=== PATIENT | male | born 1960 | race African-American/Black ===

== ENCOUNTER 2022-07-11 13:24 | Emergency (ER) | payer OTHER, SELFPAY ==
--- OUTSIDE RECORDS SUMMARY | 2022-07-11 13:27 | XMS REPORT | Continuity of Care Document ---
:1960 Author Organization [facility] t Address [address] [place] [address] Care Team Providers Name Role Phone Pcp, Patient Does Not Have A Primary Care Physician [id number] CHANDRAKANT KUMAR Attending Clinician Unavailable Chandrakant Kumar MD Attending Clinician RAJNI FLANAGAN Attending Clinician Unavailable Problems This patient has no known problems. Allergies, Adverse Reactions, Alerts Allergy Allergy Status Severity Reaction(s) Onset Inactive Treating Comm ents Source Name Type Date Date Clinician NO KNOWN Drug Active Univers ALLERGIE Class [facility] Social History Social Habit Start Date Stop Date Quantity Comments Source Sex Assigned At [birth year] [facility] 00:00:00 00:00:00 Medical Branch Smoking Status Start Date Stop Date Source Tobacco smoking consumption [facility] Branch Medications Ordered Filled Start Stop Current Ordering Indication Dosage Frequency Signature Comments Components Source Medication Medication Date Date Medication? Clinician (SIG) Name Name ondansetron 2021-0 Yes [id number] 4mg Take 1 Univers 4 mg 9-13 tablet by ity of disintegrat 00:00: mouth [place] ing tablet 00 every 8 Medica l (eight) Branch hours as needed for Nausea and Vomiting (N/V). Vital Signs Vital Name Observation Time Observation Value Comments Source Systolic blood 2022-02-28 17:50:00 168 mm[Hg] Univer sity of pressure [facility] Diastolic blood 2022-02-28 17:50:00 92 mm[Hg] [facility] Heart rate 2022-02-28 17:50:00 55 /min [facility] Respiratory rate 2022-02-28 17:50:00 19 /min [facility] Oxygen saturation in 2022-02-28 17:50:00 100 /min [facility] Arterial blood by [facility] Pulse oximetry Amity Body temperature 2022-02-28 15:54:44 36.5 Prudence [facility] Body height 2022-02-28 15:01:00 170.2 cm [facility] Body weight 2022-02-28 15:01:00 70.308 kg [facility] BMI 2022-02-28 15:01:00 24.28 kg/m2 [facility] Procedures Procedure Date / Time Performed Performing Clinician Sour e URINALYSIS 2022-02-28 17:01:00 Chandrakant Kumar [facility] COVID-19 (ID NOW RAPID 2022-02-28 17:01:00 Chandrakant Kumar [facility] TESTING) Medical Branch LIPASE 2022-02-28 15:47:00 Chandrakant Kumar [facility] TROPONIN I 2022-02-28 15:47:00 Chandrakant Kumar [facility] HEPATIC FUNCTION PANEL 2022-02-28 15:47:00 Chandrakant Kumar [facility] ([id number]) [facility] (ALB,T.PRO,BILI T,BU/BC,ALT,AST,ALK PHOS) BASIC METABOLIC PANEL 2022-02-28 15:47:00 Chandrakant Kumar [facility] (NA, K, CL, CO2, Medical Branch GLUCOSE, BUN, CREATININE, CA) CBC WITH DIFF 2022-02-28 15:47:00 Chandrakant Kumar [facility] RAPID INFLUENZA A/B 2022-02-28 15:47:00 Chandrakant Kumar [facility] NOTICE OF PRIVACY 2022-02-28 14:58:50 [facility] Un[facility]igned, [facility] CONSENT/REFUSAL FOR 2022-02-28 14:57:48 Doctor Unassigned, [facility] AND Name Medical Branch TREATMENT Encounters Start End Encounter Admission Attending Care Care Encounter Source Date/Time Date/Time Type Type Clinicians Facility Department ID 2022-04-21 2022-04-21 Outpatient SFA [id number] [id number] Don 14:16:01 14:16:01 [id number] F Spiro 2022-04-03 2022-04-03 Outpatient SFA [id number] [id number] Don 15:56:16 15:56:16 F Spiro 2022-03-29 2022-03-29 Outpatient SFA [facility] Don 09:04:34 09:04:34 [facility] 2022-03-27 2022-03-27 Outpatient SFA SFA Don 14:52:21 14:52:21 [facility] 2022-02-28 2022-02-28 [id number] 10:04:00 13:08:00 CHANDRAKANT evangelista [facility] 2022-02-28 2022-02-28 [id number] Univers 10:04:00 13:08:00 Chandrakant MINOR [id number] [facility] [id number] [facility] [id number] [address] 2019-10-28 2019-10-[address] FLANA[address] [facility] [address] [facility] 13:58:00 15:33:00 2018-10-23 2018-10-[address] [facility] [address] [facility] 07:30:00 07:30:00 Results Test Description Test Time Test Comments Results Result Comments Source MAURICE REFLEX AUTOIMMUNE AB PROFILE 2022-04-06 06:03:44 Test Item Value Reference Range Interpretation Comme nts ANTI-NUCLEAR ANTIBODIES NEGATIVE NEGATIVE Met hodology is Indirect (test code = 3506) Immunoflu orescent Assay (IFA) with a titering system using [id number] cells ( Hep2 cells transfected wit h SS-A/Ro). MAURICE PATTERN (REPORTED SEE BELOW TITER) (test code = 50232) HOMOGENEOUS (test code = NEGATIVE TITER NEGATIVE 98953) SPECKLED (test code = NEGATIVE TITER NEGATIVE 650579) DENSE FINE SPECKLED (test NEGATIVE TITER NEGATIVE code = 05090) CENTROMERE (test code = NEGATIVE TITER NEGATIVE 264435) COARSE SPECKLED (test code NEGATIVE TITER NEGATIVE = 703971) DISCRETE NUCLEAR DOTS (test NEGATIVE TITER NEGATIVE code = 680445) NUCLEOLAR (test code = NEGATIVE TITER NEGATIVE 861154) NUCLEAR MEMBRANE (test code NEGATIVE TITER NEGATIVE = 168925) CYTO. RETICULAR (KYLE) NEGATIVE NEGATIVE (test code = 445086) COMMENTS (test code = NONE 597223) METHOD (test code = 98810) (NOTE) NOTE: EFFECTIVE 01/23/2022, METHOD IS TRANS ITIONED TO THE [employer] IFA PLATFORM. THE M ETHOD INCLUDES A SCREENTHRESHOLD OF 1:80, DIGITIZED AND C OMPUTER ALGORITHM-ANUPAMA TEDINTERPRETATION OF TITERS AND D IGITAL PATTERNS, AND HEp-2 CELLL INE SUBSTRATE. ADDITIONAL UNUS UAL PATTERNS WILL BE GIVEN ASCOMM ENTS. FOR MORE INFORMATION, SE E [email or web address] [email or web address] [id number] 09:37:28 Test Item Value Reference Range Interpretation Comments SEDIMENTATION RATE (test code = 8 MM/HOUR 0-15 1017) CCP [id number] 06:05:38 Test Item Value Reference Range Interpretation Comments CCP IgG (test <0.5 U/ML <3.0 INTERPRET KAROLINA code = 15780) INFORMATION * INTERPRETATION RESULT NEGATIVE <3.0 U /ML POSITIVE >=3.0 U/ML UNLE SS OTHERWISE INDICATED, ALL TESTING PERFORMED [facility] [employer] [address] [place] [address] LABOR ATORY DIRECTOR: LIOR NAZARIO M.D. CLIA NUMBER [id number] CAP ACCREDITATION N O. [id number] RHEUMATOID FACTOR, [id number] 04:51:56 Test Item Value Reference Range Interpretation Comments RHEUMATOID FACTOR, QUANT (test code <10 IU/ML <14 = 3502) C-REACTIVE [id number] 04:51:56 Test Item Value Reference Range Interpretation Comments C-REACTIVE PROTEIN (test code = <0.3 MG/DL <0.5 3513) LIPID [id number] 08:22:52 Test Item Value Reference Range Interpretation Comments CHOLESTEROL (test 164 MG/DL <200 code = 2210) TRIGLYCERIDES (test 103 MG/DL <150 code = 2232) HDL CHOLESTEROL (test 75 MG/DL >39 code = 2220) CALC LDL CHOL (test 70 MG/DL <100 NOTE: C ALCULATED LDL code = 2237) IS BASED ON MIKEL-CALIXTO METHOD WHICHINCLUDES ADJUSTABLE TRIGLYCERIDE:VL DL CHOLESTEROL RAT IO.THIS FACTOR VARIES B Y MEASURED TRIGLY CERIDE AND NON-HDLCHOL ESTEROL CONCENTRATIONS WITH INCREASED CALCU LATED LDL SEENIN HIGH ER TRIGLYCERIDE OR LOWER NON-HDL SPECIME NS. FOR MOREINFORMATION , SEE CLIENT ANNOUNCE MENT AT [email or web address] LDL/HDL 0.93 RATIO <3.55 (test code = 2238) COMPREHENSIVE METABOLIC [id number] 08:22:52 Test Item Value Reference Range Interpretation Comments GLUCOSE (test code = 88 MG/DL 70-99 2216) BUN (test code = 16 MG/DL 8-23 2207) CREATININE (test 1.24 MG/DL 0.80-1.40 code = 2214) eGFR (2020 CKD-EPI) 66 ML/MIN/1.73 >60 (test code = 88442) CALC BUN/CREAT (test 13 RATIO 6-28 code = 2235) SODIUM (test code = 144 MEQ/L 555-015 3435) POTASSIUM (test code 4.4 MEQ/L 3.5-5.4 = 2227) CHLORIDE (test code 104 MEQ/L 95-107 = 2215) CARBON DIOXIDE (test 27 MEQ/L 19-31 code = 2206) CALCIUM (test code = 10.3 MG/DL 8.5-10.5 2208) PROTEIN, TOTAL (test 7.7 G/DL 6.1-8.3 code = 2229) ALBUMIN (test code = 4.7 G/DL 3.5-5.2 2200) CALC GLOBULIN (test 3.0 G/DL 1.9-3.7 code = 2240) CALC A/G RATIO (test 1.6 RATIO 1.0-2.6 code = 2234) BILIRUBIN, TOTAL 0.8 MG/DL See_Comment [Automated message] (test code = 2207) The syste m which generated this result transmit nas reference range : <=1.2. The refe rence range was not u sed to interpret th is result as normal/abnormal . ALKALINE PHOSPHATASE 81 U/L 40-123 (test code = 4) AST (test code = 29 U/L 9-50 2217) ALT (test code = 17 U/L 5-50 2218) PSA, [id number] 06:52:55 Test Item Value Reference Range Interpretation Comments PSA, TOTAL 1.97 NG/ML See_Comment NOTE: Methodol ogy is Kendall (test code = Alexia Electroch emiluminescence 2606) Immunoassay tra ceable to WHO reference stand bushra 96/760. [Automated mess age] The system which generated this result transmitted ref erence range: <=4.00. The ref erence range was not used to int erpret this result as garcia l/abnormal. TSH, THIRD [id number] 06:52:55 Test Item Value Reference Range Interpretation Comments TSH, THIRD GENERATION (test code 0.791 UIU/ML 0.400-4.100 = 2821) HEPATITIS C [id number] 04:01:03 Test Item Value Reference Range Interpretation Comments HEPATITIS C ANTIBODY (test code NON-REACTIVE NON-REACTIVE = 4675) HIV 1/2 4TH GEN, RFLX [id number] 04:01:03 Test Item Value Reference Range Interpretation Comments HIV 1/2 4TH GEN, RFLX CONF (test NON-REACTIVE NON-REACTIVE code = 3514) HEMOGLOBIN [id number] 02:26:15 Test Item Value Reference Range Interpretation Comments HEMOGLOBIN A1c (test 5.7 % 4.2-5.6 H UNLESS OTHERWISE code = 35092) INDICATED, ALL TESTING PERFORMED [facility] [address] [facility] [place] [address] [facility] DIRECT[facility]: LIOR NAZARIO M.D. CLIA NUMBER [id number] CAP ACCREDITATION N O. [id number] CBC W/AUTO DIFF WITH [id number] 02:02:15 Test Item Value Reference Range Interpretation Comments WBC (test code = 6.7 K/UL 3.5-11.0 1001) RBC (test code = 4.23 M/UL 4.50-6.10 L 1002) HEMOGLOBIN (test code 12.7 G/DL 13.5-17.0 L = 1003) HEMATOCRIT (test code 38.1 % 40.0-51.0 L = 1004) MCV (test code = 90.1 fL 80.0-99.0 1005) MCH (test code = 30.0 PG 25.0-33.0 1006) MCHC (test code = 33.3 G/DL 31.0-36.0 1007) RDW (test code = 13.6 % 11.5-15.0 1038) NEUTROPHILS (test 57.6 % code = 1008) LYMPHOCYTES (test 31.9 % code = 1010) MONOCYTES (test code 7.9 % = 1011) EOSINOPHILS (test 1.9 % code = 1012) BASOPHILS (test code 0.4 % = 1013) IMMATURE GRANULOCYTES 0.3 % (test code = 1036) NUCLEATED RBCS (test 0.0 /100 WBC'S See_Comment [Aut omated code = 1065) message] The sy stem which generated this result transmitted reference range : 0.0. The refere nce range was not u sed to interpret th is result as normal/abnormal . PLATELET COUNT (test 330 K/UL 130-400 code = 1015) ABSOLUTE NEUTROPHILS 3.88 K/UL 1.50-7.50 (test code = 1066) ABSOLUTE LYMPHOCYTES 2.15 K/UL 1.00-4.00 (test code = 1067) ABSOLUTE MONOCYTES 0.53 K/UL 0.20-1.00 (test code = 1068) ABSOLUTE EOSINOPHILS 0.13 K/UL 0.00-0.50 (test code = 1040) ABSOLUTE BASOPHILS 0.03 K/UL 0.00-0.20 (test code = 1069) ABS IMMATURE 0.02 K/UL 0.00-0.10 GRANULOCYTES (test code = 1020) ABS NUCLEATED RBCS 0.00 K/UL 0.00-0.11 (test code = 70531) TROPONIN [id number] 16:30:32 Test Item Value Reference Interpretation Comments Range TROPONIN I (test 0.006 ng/mL See_Comment [Automated code = 1253123351) message] The system which generated this result transmitted reference range : <=0.034. The reference range was not used to interpret this result as normal/abnormal . GABBY (test code = Reference (Normal) GABBY) Range (defined by the 99th percentile reference limit): <= 0.034 ng/mL Note: Cardiac troponin begins to rise 3-4 hours after the onset of ischemia. Repeat in 4-6 hours if the sample was drawn within 3-4 hours of the onset of the symptom and found normal. Diagnosis of myocardial injury is made with acute changes in cTn concentrations with at least one serial sample above the 99th percentile upper reference limit (URL), taken together with the patient's clinical presentation. Biotin has been reported to cause a negative bias, interpret results relative to patient's use of biotin. Lab Interpretation Normal (test code = 17640-8) [facility] METABOLIC PANEL (NA, K, CL, CO2, GLUCOSE, BUN, CREATININE, CA)2022-02-28 16:18:50 Test Item Value Reference Range Interpretation Comments NA (test code = 135 mmol/L 135-145 3443196742) K (test code = 4.1 mmol/L 3.5-5 5472030876) CL (test code = 103 mmol/L 98-108 5561011385) CO2 TOTAL (test code 26 mmol/L 23-31 = 5887347343) AGAP (test code = 2-16 1385199536) BUN (test code = 14 mg/dL 7-23 7111547494) GLUCOSE (test code = 98 mg/dL 70-110 8948338704) CREATININE (test code 1.05 mg/dL 0.6-1.25 = 2003875495) CALCIUM (test code = 9.6 mg/dL 8.6-10.6 1257477182) eGFR (test code = mL/min/1.73m2 0268519600) GABBY (test code = GABBY) Association of Glomerular Filtration Rate (GFR) and Staging of Kidney Disease* + + +- +| GFR (mL/min/1.73 m2) ?| With Kidney Damage ?| ?Without Kidney Damage+ ------+ ----+ ------+| ?>90 ?| ?Stage one ?| ? Normal ?+ -+ + -+| ?60-89 ?| ?Stage two ?| ? Decreased GFR ? + + +- +| ?30-59 ?| ?Stage three ?| ? Stage three ? + + +- +| ?15-29 ?| ?Stage four ? | ? Stage four ?+ -+ + -+| ?<15 (or dialysis) ? ?| ?Stage five ? | ? Stage five ?+ -+ + -+ *Each stage assumes the associated GFR level has been in effect for at least three months. ?Stages 1 to 5, with or without kidney disease, indicate chronic kidney disease. Notes: Determination of stages one and two (with eGFR >59mL/min/1.73 m2) requires estimation of kidney damage for at least three months as defined by structural or functional abnormalities of the kidney, manifested by either:Pathological abnormalities or Markers of kidney damage (including abnormalities in the composition of the blood or urine or abnormalities in imaging tests). [facility] 16[facility]18[facility]50 Test Item Value Reference Range Interpretation Comments LIPASE (test code = 7885697237) 62 U/L 0-220 Lab Interpretation (test code = Normal 12697-9) [facility] ([address] (ALB,T.PRO,BILI T,BU/BC,ALT,AST,ALK PHOS)2022-02-28 16:18:50 Test Item Value Reference Range Interpretation Comments TOTAL BILI (test code = 4240734961) 1.1 mg/dL 0.1-1.1 BILI UNCON (test code = 2059492430) 1.0 mg/dL 0.1-1.1 BILI CONJ (test code = 0439922347) 0.0 mg/dL 0-0.3 T PROTEIN (test code = 1332514897) 7.3 g/dL 6.3-8.2 ALBUMIN (test code = 8975875968) 4.5 g/dL 3.5-5 ALK PHOS (test code = 1923514125) 68 U/L 34-122 ALTv (test code = 1742-6) 18 U/L 5-50 AST(SGOT) (test code = 9299193291) 27 U/L 13-40 Lab Interpretation (test code = Normal 27917-7) [facility] WITH [id number] 15:57:46 Test Item Value Reference Range Interpretation Comments WBC (test code = See_Comment [Automated 6690-2) message] The sy stem which generated this result transmitted reference range : 4.20 - 10.70 10*3/?L. The reference range was not used to interpret this result as normal/abnormal . RBC (test code = See_Comment L [Automated 789-8) message] The sy stem which generated this result transmitted reference range : 4.26 - 5.52 10*6/?L. The reference range was not used to interpret this result as normal/abnormal . HGB (test code = 12.5 g/dL 12.2-16.4 718-7) HCT (test code = 36.9 % 38.4-49.3 L 4544-3) MCV (test code = 89.3 fL 81.7-95.6 787-2) MCH (test code = 30.3 pg 26.1-32.7 785-6) MCHC (test code = 33.9 g/dL 31.2-35 786-4) RDW-SD (test code = 45.5 fL 38.5-51.6 33868-2) RDW-CV (test code = 13.9 % 12.1-15.4 788-0) PLT (test code = See_Comment [Automated 777-3) message] The sy stem which generated this result transmitted reference range : 150 - 328 10*3/ ?L. The reference r batool was not used to interpret this result as normal/abnormal . MPV (test code = 9.2 fL 9.8-13 L 68245-6) NRBC/100 WBC (test See_Comment [Automat ed code = 0250046825) message] The system which generated this result transmitted reference range : 0.0 - 10.0 /100 WBCs. The refer ence range was not u sed to interpret th is result as normal/abnormal . NRBC x10^3 (test code See_Comment [Auto mated = 5061356451) message] The s ystem which generated this result transmitted reference range : 10*3/?L. The reference range was not used to interpret this result as normal/abnormal . GRAN MAT (NEUT) % 71.4 % (test code = 770-8) IMM GRAN % (test code 0.20 % = 1446579774) LYMPH % (test code = 22.2 % 736-9) MONO % (test code = 5.6 % 5905-5) EOS % (test code = 0.3 % 713-8) BASO % (test code = 0.3 % 706-2) GRAN MAT x10^3(ANC) 4.61 10*3/uL 1.99-6.95 (test code = 8699533142) IMM GRAN x10^3 (test 0-0.06 code = 9386235981) LYMPH x10^3 (test code 1.43 10*3/uL 1.09-3.23 = 731-0) MONO x10^3 (test code 0.36 10*3/uL 0.36-1.02 = 742-7) EOS x10^3 (test code = 0.06-0.53 L 711-2) BASO x10^3 (test code 0.01-0.09 = 704-7) Lab Interpretation Abnormal (test code = 93736-9) [facility]"
[2022-07-11 13:49] LABS: Absolute Lymphocytes (CBC) 1.9 K/uL (0.7-4.9); Hematocrit 35.2 % (39.6-49.0); MCV 90.8 fL (80-100); MPV 7.3 fL (7.6-11.3); RBC Red Blood Cell Count 3.87 M/uL (4.33-5.43)
[2022-07-11 14:08] LABS: Albumin 3.7 g/dL (3.4-5.0); Bilirubin Direct 0.2 mg/dL (0-0.2); Bilirubin Total 0.7 mg/dL (0.2-1.0); Potassium 3.9 mmol/L (3.5-5.1); Protein, Total 7.7 g/dL (6.4-8.2); Troponin High Sensitivity 6.9 pg/mL (<58.9)
--- NOTE | 2022-07-11 14:48 | RAD REPORT ---
EXAM DESCRIPTION: Alexa Single View07/11/2022 2:43 pm CLINICAL HISTORY: Chest pain COMPARISON: none FINDINGS: The lungs appear clear of acute infiltrate. The heart is normal size IMPRESSION: No acute abnormalities displayed
--- NOTE | 2022-07-11 15:25 | EDPHYS ---
Physician Documentation [facility] Name: Kenji Ahn Jr Age: 62 yrs Sex: Male : 1960 Arrival Date: 07/11/2022 Time: 13:27 Bed [id number] Private MD: ED Physician Ra Calhoun HPI: 07/11 13:31 This 62 yrs old Black Male presents to ER via Wheelchair with complaints of Chest Pain. ms3 13:31 62-year-old male with past medical history of asthma, diabetes, hypertensive disorder, ms3 tobacco abuse presents for chest pain that began last night. Patient states while at work today the pain became worse. Patient rates his pain 8/10 describes it as being sharp, and located on the left side of his chest. Patient denies shortness of breath, nausea, vomiting, diarrhea.. Historical: - Allergies: 13:30 No Known Allergies; ss - Home Meds: 13:30 None [Active]; ss - PMHx: 13:30 Asthma; diabetes mellitus; Hypertensive disorder; ss - PSHx: 13:30 hand; hernia; knee; Tonsillectomy; ss - Immunization history:: Client reports having NOT received the Covid vaccine. - Social history:: Smoking status: Patient reports the use of cigarette tobacco products, smokes one pack cigarettes per day. ROS: 13:31 Constitutional: Negative for fever, and chills. Neck: Negative for injury, pain, and ms3 swelling, Respiratory: Negative for shortness of breath, cough, wheezing, and pleuritic chest pain, Abdomen/GI: Negative for abdominal pain, nausea, vomiting, diarrhea, and constipation, Skin: Negative for injury, rash, and discoloration. 13:31 All other systems are negative. Exam: 14:07 Constitutional: This is a well developed, well nourished patient who is awake, alert, ms3 and in no acute distress. Head/Face: Normocephalic, atraumatic. ENT: Nares patent. No nasal discharge, no septal abnormalities noted. Tympanic membranes are normal and external auditory canals are clear. Oropharynx with no redness, swelling, or masses, exudates, or evidence of obstruction, uvula midline. Mucous membranes moist. Neck: Trachea midline, no cervical lymphadenopathy. Supple, full range of motion without nuchal rigidity, or vertebral point tenderness. No Meningismus. Chest/axilla: Normal chest wall appearance and motion. Nontender with no deformity. Cardiovascular: Regular rate and rhythm with a normal S1 and S2. No gallops, murmurs, or rubs. Normal PMI, no JVD. No pulse deficits. Respiratory: Lungs have equal breath sounds bilaterally, clear to auscultation and percussion. No rales, rhonchi or wheezes noted. No increased work of breathing, no retractions or nasal flaring. Abdomen/GI: Soft, non-tender, with normal bowel sounds. No distension or tympany. No guarding or rebound. No evidence of tenderness throughout. Skin: Warm, dry with normal turgor. Normal color with no rashes, no lesions, and no evidence of cellulitis. MS/ Extremity: Pulses equal, no cyanosis. Neurovascular intact. Full, normal range of motion. 14:07 ECG was reviewed by the Attending Physician. Vital Signs: 13:27 BP 157 / 95; Pulse 71; Resp 18; Temp 98.4(TE); Pulse Ox 100% on R/A; Weight 68.04 kg; ss Height 5 ft. 8 in. (172.72 cm); Pain 8/10; 13:27 Body Mass Index 22.81 (68.04 kg, 172.72 cm) ss MDM: 13:30 Patient medically screened. ms3 14:07 Differential diagnosis: abnormal EKG, acute myocardial infarction, coronary artery ms3 disease. 15:01 HEART Score: History: Slightly Suspicious (0), ECG: Normal (0), Age: > 45 and < 65 ms3 years (1), Risk Factors: > or = 3 Risk factors for atherosclerotic disease (2), [Hypertension] [DM] [Active Smoker] Troponin: < or = 1 x Normal Limit (0), Total Score = 3. 15:25 The patient was given aspirin in the Emergency Department. Data reviewed: vital signs, ms3 nurses notes, lab test result(s), EKG, radiologic studies, and as a result, I will discharge patient. Consideration of Admission/Observation Escalation of care including admission/observation considered. No emergent medical condition necessitating admission found at this time. Management of patient was discussed with the following: Eap Consultant: Discussed case with Dr. Tanner and he will see patient tomorrow at 9 AM.. I considered the following discharge prescriptions or medication management in the emergency department Medications were administered in the Emergency Department. See MAR. Independent interpretation of the following test(s) in the Emergency Department EKG: See my EKG interpretation above. Test considered but Not performed: CT: D-dimer negative. Care significantly affected by the following chronic conditions: Diabetes, Hypertension. Counseling: I had a detailed discussion with the patient and/or guardian regarding: the historical points, exam findings, and any diagnostic results supporting the discharge/admit diagnosis, lab results, radiology results, the need for outpatient follow up, to return to the emergency department if symptoms worsen or persist or if there are any questions or concerns that arise at home. Special discussion: I discussed with the patient/guardian in detail that at this point there is no indication for admission to the hospital. It is understood, however, that if the symptoms persist or worsen the patient needs to return immediately for re-evaluation. ED course: Discussed plan with patient for him to follow-up with Dr. Waller at 9 AM tomorrow. Patient and his daughter understand and agree with plan. All questions were answered. Return precautions discussed include worsening symptoms, shortness of breath, nausea, vomiting, or any other concerns. 07/11 13: Order name: Basic Metabolic Panel; Complete Time: 15:07/11 13:31 Order name: CBC with Diff; Complete Time: 15:07/11 13:31 Order name: D-Dimer; Complete Time: 15:07/11 13:31 Order name: LFT's; Complete Time: 15:07/11 13:31 Order name: Magnesium; Complete Time: 15:07/11 13:31 Order name: Troponin HS; Complete Time: 15:07/11 13:31 Order name: XRAY Chest (1 view); Complete Time: 15:07/11 13:31 Order name: EKG; Complete Time: 13:07/11 13:31 Order name: Cardiac monitoring 07/11 13:31 Order name: EKG - Nurse/Tech; Complete Time: 13:40 07/11 13:31 Order name: IV Saline Lock; Complete Time: 13:40 07/11 13:31 Order name: Labs collected and sent; Complete Time: 13:40 ms3 07/11 13:31 Order name: O2 Per Protocol; Complete Time: 13:40 ms3 07/11 13:31 Order name: O2 Sat Monitoring; Complete Time: 13:40 ms3 EC:07 Rate is 58 beats/min. Rhythm is regular. QRS [place] is Normal. FL interval is normal. QRS ms3 interval is normal. Clinical impression: Sinus bradycardia. Interpreted by me. Reviewed by me. Administered Medications: No medications were administered Disposition Summary: 07/11/22 15:25 Discharge Ordered Location: Home ms3 Condition: Stable ms3 Diagnosis - Chest pain, unspecified ms3 - Essential (primary) hypertension ms3 - Anemia, unspecified ms3 Followup: ms3 - With: Leif Tanner MD - When: Tomorrow - Reason: at 9 AM Discharge Instructions: - Discharge Summary Sheet ms3 - Nonspecific Chest Pain, Adult ms3 - Hypertension, Adult ms3 Forms: - Medication Reconciliation Form ms3 - Thank You Letter ms3 - Antibiotic Education ms3 - Prescription Opioid Use ms3 Signatures: Dispatcher [employer] Sandy Solis, RN RN Ra Cota DO DO ms3
--- NOTE | 2022-07-11 15:25 | ER ---
Nurse's Notes [facility] Name: Kenji Ahn Jr Age: 62 yrs Sex: Male : 1960 Arrival Date: 07/11/2022 Time: 13:27 Bed IW8 Private MD: Diagnosis: Chest pain, unspecified;Essential (primary) hypertension;Anemia, unspecified Presentation: 07/11 13:27 Chief complaint: Patient states: L sided chest pain that began last night, worse this ss morning. Coronavirus screen: Client denies travel out of the [place] in the last 14 days. Ebola Screen: Patient denies exposure to infectious person. Patient denies travel to an Ebola-affected area in the 21 days before illness onset. Initial Sepsis Screen: Does the patient meet any 2 criteria? No. Patient's initial sepsis screen is negative. Does the patient have a suspected source of infection? No. Patient's initial sepsis screen is negative. Risk Assessment: Do you want to hurt yourself or someone else? Patient reports no desire to harm self or others. Onset of symptoms was July 10, 2022. 13:27 Method Of Arrival: Wheelchair ss 13:27 Acuity: BELEN 3 ss Historical: - Allergies: 13:30 No Known Allergies; ss - Home Meds: 13:30 None [Active]; ss - PMHx: 13:30 Asthma; diabetes mellitus; Hypertensive disorder; ss - PSHx: 13:30 hand; hernia; knee; Tonsillectomy; ss - Immunization history:: Client reports having NOT received the Covid vaccine. - Social history:: Smoking status: Patient reports the use of cigarette tobacco products, smokes one pack cigarettes per day. Screenin:33 [facility] ED Fall Risk Assessment (Adult) History of falling in the last 3 months, jh5 including since admission No falls in past 3 months (0 pts). Abuse screen: Denies threats or abuse. Denies injuries from another. Nutritional screening: No deficits noted. Tuberculosis screening: No symptoms or risk factors identified. Vital Signs: 13:27 BP 157 / 95; Pulse 71; Resp 18; Temp 98.4(TE); Pulse Ox 100% on R/A; Weight 68.04 kg; ss Height 5 ft. 8 in. (172.72 cm); Pain 8/10; 13:27 Body Mass Index 22.81 (68.04 kg, 172.72 cm) ED Course: 13:27 Patient arrived in ED. am2 13:30 Ra Calhoun DO is Attending Physician. ms3 13:30 Triage completed. ss 13:30 Arm band placed on right wrist. ss 13:39 Inserted saline lock: 20 gauge in left antecubital area, using aseptic technique. Blood ss collected. Patient maintains SpO2 saturation greater than 95% on room air. 14:45 XRAY Chest (1 view) In Process Unspecified. EDMS 15:24 Leif Tanner MD is Referral Physician. ms3 15:33 Patient has correct armband on for positive identification. jh5 15:33 No provider procedures requiring assistance completed. IV discontinued, intact, jh5 bleeding controlled, No redness/swelling at site. Pressure dressing applied. Administered Medications: No medications were administered Medication: 15:33 VIS not applicable for this client. jh5 Outcome: 15:25 Discharge ordered by MD. ms3 15:33 Discharged to home ambulatory. jh5 15:33 Condition: good 15:33 Discharge instructions given to patient, Instructed on discharge instructions, follow up and referral plans. safety practices, Demonstrated understanding of instructions, follow-up care, medications. 15:34 Patient left the ED. 5 Signatures: Dispatcher [employer] EDCO Sandy Zelaya, RN RN Ceci Calvillo am2 Ra Calhoun DO DO ms3 Radha Sewell, RN RN jh5
[2022-07-11 17:00] VITALS: BP 157/95; TEMP 98.4; O2SAT 100
--- NOTE | 2022-07-13 18:12 | EKG ---
Test Date: 2022-07-11 Test Time: 13:37:13 Md Allergy Immunology: SB MEASUREMENT RESULTS: Intervals: Rate: 58 GA: 148 QRSD: 84 QT: 420 QTc: 412 [place]: P: 61 GA: 148 QRS: 75 T: 32 INTERPRETIVE STATEMENTS: Sinus bradycardia Moderate voltage criteria for LVH, may be normal variant Borderline ECG No previous ECG available for comparison Electronically Signed On 07-13-22 18:10:46 PHYSICIAN OPHTHALMOLOGIST by Leif Tanner
== END 2022-07-11 15:34 | disposition home or self-care (01) ==
LOC: ER 13:24
DX: R07.89 Other chest pain (principal); I10 Essential (primary) hypertension; D64.9 Anemia, unspecified; E11.9 Type 2 diabetes mellitus without complications; F17.210 Nicotine dependence, cigarettes, uncomplicated
CPT/HCPCS: 36415; 71045; 80048; 80076; 83735; 84484; 85025; 85379; 93005; 99284

== ENCOUNTER 2024-08-04 06:26 | Emergency (ER) | payer OTHER ==
--- OUTSIDE RECORDS SUMMARY | 2024-08-04 06:30 | XMS REPORT | Continuity of Care Document ---
Author Name Unknown Address [address] [facility] [address] [place] [address] [facility] thconnect Address 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 Name Role Phone Pcp, Patient Does Not Have A Primary Care Physic linh SARITA RUIZ Attending Clinician Unavailable JEF MCCLELLAND Attending Clinician Unavailable LEDY LY Attending Clinician Unavailable LAB90 Attending Clinician Unavailable ESHA PALUMBO Attending Clinician Unavailable CHANDRAKANT KUMAR Attending Clinician Unavailable Chandrakant Kumar MD Attending Clinician [phone] RAJNI FLANAGAN Attending Clinician Unavailable Payers Payer Name Policy Type Policy Number Effective Date Expirati on Date Source ZAHIDA CHATTERJEE [employer]: 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 [address] [id number] 2022 00:00:00 Problems Condition Name Condition Details Condition Category Status Onset Date Resolution Date Last Treatment Date Treating Clinician Comments Source Subclinica l hypothyroi dism Subclinica l hypothyroi dism Disease Active 09-28 00:00: 00 Julissa Carrillo - Externa l Left hip pain Left hip pain Disease Active 09-28 00:00: 00 Julissa Carrillo - Externa l Numbness and tingling in left hand Numbness and tingling in left hand Disease Active 09-28 00:00: 00 Julissa Seybold - Externa l 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 Disease Active 09-28 00:00: 00 Julissa Seybold - Externa l Prediabete s Prediabete s Disease Active 3-16 00:00: 00 Julissa Seybold - Externa l Well adult exam Well adult exam Disease Active 08-03 00:00: 00 Julissa Seybold - Externa l Syncope Syncope Disease Active 08-03 00:00: 00 Julissa Seybold - Externa l Other specified anemias Other specified anemias Disease Active 08-03 00:00: 00 Julissa Seybold - Externa l Mild intermitte nt asthma without complicati on Mild intermitte nt asthma without complicati on Disease Active 08-03 00:00: 00 Julissa Seybold - Externa l Seasonal allergic rhinitis due to pollen Seasonal allergic rhinitis due to pollen Disease Active 08-03 00:00: 00 Julissa Seybold - Externa l Tobacco abuse Tobacco abuse Disease Active 08-03 00:00: 00 Julissa Seybold - Externa l Allergies, Adverse Reactions, Alerts Allergy Name Allergy Type Status Severity Reaction(s) Onset Date Inactive Date Treating Clinician Comments Source NO KNOWN ALLERGIE S Drug Class Active [facility] Social History Social Habit Start Date Stop Date Quantity Comments Source History SDOH Alcohol Std Drinks Julissa Kaur ybold - External History SDOH Alcohol Binge Julissa Carrillo - External History of tobacco use Cigarette Smoker Julissa Lowry old - External Gender identity Bren flood Seybold - External Sexual orientation K elsey Seybold - External History SDOH Alcohol Frequency Julissa baez - External Alcohol intake 2022-11-28 00:00:00 2022-11-28 00:00:00 Ex-drinker (finding) Julissa Lowryold - External Alcohol Comment 2022-08-03 00:00:00 2022-08-03 00:00:00 occasionally Julissa Carrillo - External Education 2022-08-03 00:00:00 2022-08-03 00:00:00 14 Julissa Carrillo - External Cigarettes smoked current (pack per day) - Reported 2022-08-03 00:00:00 2022-08-03 00:00:00 Julissa Carrillo - External Cigarette pack-years 2022-08-03 00:00:00 2022-08-03 00:00:00 Julissa Joe External History of Social function 2022-08-03 00:00:00 2022-08-03 00:00:00 Julissa Carrillo - External Tobacco use and exposure 2022-08-03 00:00:00 2022-08-03 00:00:00 Smokeless tobacco non-user Julissa Nevarez Sex Assigned At 1960 00:00:00 1960 00:00:00 Julissa Carrillo - External Smoking Status Start Date Stop Date Source Tobacco smoking consumption unknown [facility] Smokes tobacco daily 2022-08-03 00:00:00 Julissa Joe External Medications Ordered Medication Name Filled Medication Name Start Date Stop Date Current Medication? Ordering Clinician Indication Dosage Frequency Signature (SIG) Comments Components Source Cetirizine (ZYRTEC) 10 MG oral Tablet 11-28 09:46: 07 Yes 10mg Take 1 tablet (10 mg total) by mouth daily Julissa powers Fluticasone -Umeclidin- Vilant (Trelegy Ellipta) 200-62.5-25 MCG/ACT inhalation AEROSOL POWDER, BREATH ACTIVATED 11-28 00:00: 00 Yes [id number] 1{puff} Inhale 1 puff into the lungs daily Julissa powers Albuterol (PROVENTIL) (2.5 MG/3ML) 0.083% inhalation Inhalant Solution 11-28 00:00: 00 Yes [id number] 2.5mg Q4H Take 2.5 mg by nebulizati on every 4 hours as needed for wheezing Julissa powers Montelukast (Singulair) 10 MG oral Tablet tablet 11-02 00:00: 00 Yes [id number] 10mg Take 1 tablet (10 mg total) by mouth nightly Julissa powers Cetirizine (ZYRTEC) 10 MG oral Tablet -15 08:43: 14 Yes 10mg Take 1 tablet (10 mg total) by mouth daily Julissa powers Gabapentin 100 MG oral Capsule -15 00:00: 00 Yes [id number] 100mg Q.5D Take 1 capsule (100 mg total) by mouth 2 times daily as needed Julissa powers Montelukast (Singulair) 10 MG oral Tablet tablet 15 00:00: 00 Yes [id number] 10mg Take 1 tablet (10 mg total) by mouth nightly Julissa powers Sildenafil Citrate (Viagra) 100 MG oral Tablet 09-28 00:00: 00 Yes 100mg QD Take 1 tablet (100 mg total) by mouth daily as needed Julissa powers Nicotine 21 MG/24HR transdermal PATCH 24 HR 09-28 00:00: 00 Yes 1{patch } Place 1 patch onto the skin every 24 hours Julissa powers Meloxicam 15 MG oral Tablet 09-28 00:00: 00 10-30 00:00 :00 No [id number] 15mg QD Take 1 tablet (15 mg total) by mouth daily as needed for pain Julissa powers Cetirizine (ZYRTEC) 10 MG oral Tablet 16 08:28: 59 Yes 10mg Take 10 mg by mouth daily Julissa powers Albuterol HFA 108 (90 Base) MCG/ACT IN AERS 16 00:00: 00 Yes [id number] 2{puff} Q.25D Inhale 2 puffs into the lungs every 6 hours as needed for wheezing or shortness of breath Julissa powers Fluticasone -Salmeterol (Advair Diskus) 250-50 MCG/ACT inhalation AEROSOL POWDER, BREATH ACTIVATED -16 00:00: 00 Yes [id number] 1{puff} Inhale 1 puff into the lungs 2 times daily Julissa powers Sildenafil Citrate (Viagra) 25 MG oral Tablet 08-31 00:00: 00 Yes [id number] 100mg QD Take 4 tablets (100 mg total) by mouth daily as needed for erectile dysfunctio n Julissa powers Nicotine 21 MG/24HR transdermal PATCH 24 HR 08-31 00:00: 00 Yes [id number] 1{patch } Place 1 patch onto the skin every 24 hours Julissa powers Cetirizine (ZYRTEC) 10 MG oral Tablet 08-03 08:41: 07 Yes 10mg Take 10 mg by mouth daily Julissa powers Albuterol HFA 108 (90 Base) MCG/ACT IN AERS 08-03 00:00: 00 Yes [id number] 2{puff} Q.25D Inhale 2 puffs into the lungs every 6 hours as needed for wheezing Julissa powers ondansetron 4 mg disintegrat ing tablet 02-28 00:00: 00 Yes [id number] 4mg Take 1 tablet by mouth every 8 (eight) hours as needed for Nausea and Vomiting (N/V). [facility] Vital Signs Vital Name Observation Time Observation Value Comments S ource Systolic blood pressure 2022-11-28 14:49:00 146 mm[Hg] Julissa Carias ld - External Diastolic blood pressure 2022-11-28 14:49:00 92 mm[Hg] Julissa joseph - External Heart rate 2022-11-28 14:49:00 74 /min Pavithra Carrillo - External Body temperature 2022-11-28 14:49:00 36.61 Prudence Julissa Carrillo - External Respiratory rate 2022-11-28 14:49:00 18 /min Julissa Carrillo - External Body height 2022-11-28 14:49:00 176.8 cm Bren Carrillo - External Body weight 2022-11-28 14:49:00 65.046 kg Bren Carrillo - External BMI 2022-11-28 14:49:00 20.81 kg/m2 Bren Carrillo - External Oxygen saturation in Arterial blood by Pulse oximetry 2022-11-28 14:49:00 99 /min Julissa Seybo ld - External Systolic blood pressure 2022-10-30 13:42:00 129 mm[Hg] Julissa Seybo ld - External Diastolic blood pressure 2022-10-30 13:42:00 78 mm[Hg] Julissa Seybo ld - External Heart rate 2022-10-30 13:42:00 98 /min Kelse y Seybold - External Body temperature 2022-10-30 13:42:00 36.56 Prudence Julissa Seybold - External Respiratory rate 2022-10-30 13:42:00 16 /min Julissa Seybold - External Body height 2022-10-30 13:42:00 172.7 cm Bren ey Seybold - External Body weight 2022-10-30 13:42:00 65.772 kg Bren ey Seybold - External BMI 2022-10-30 13:42:00 22.05 kg/m2 Bren ey Seybold - External Oxygen saturation in Arterial blood by Pulse oximetry 2022-10-30 13:42:00 99 /min Julissa Seybo ld - External Systolic blood pressure 2022-09-28 13:19:00 140 mm[Hg] Julissa Seybo ld - External Diastolic blood pressure 2022-09-28 13:19:00 86 mm[Hg] Julissa Seybo ld - External Heart rate 2022-09-28 13:19:00 66 /min Kelse y Seybold - External Body temperature 2022-09-28 13:19:00 36.61 Prudence Julissa Seybold - External Respiratory rate 2022-09-28 13:19:00 14 /min Julissa Seybold - External Body height 2022-09-28 13:19:00 172.7 cm Bren ey Seybold - External Body weight 2022-09-28 13:19:00 66.225 kg Bren ey Seybold - External BMI 2022-09-28 13:19:00 22.20 kg/m2 Bren ey Seybold - External Oxygen saturation in Arterial blood by Pulse oximetry 2022-09-28 13:19:00 99 /min Julissa Seybo ld - External Systolic blood pressure 2022-08-31 13:26:00 134 mm[Hg] Julissa Seybo ld - External Diastolic blood pressure 2022-08-31 13:26:00 74 mm[Hg] Julissa Seybo ld - External Heart rate 2022-08-31 13:26:00 74 /min Kelse y Seybold - External Body temperature 2022-08-31 13:26:00 37.06 Prudence Julissa Seybold - External Respiratory rate 2022-08-31 13:26:00 15 /min Julissa Seybold - External Body height 2022-08-31 13:26:00 172.7 cm Bren ey Seybold - External Body weight 2022-08-31 13:26:00 66.225 kg Bren ey Seybold - External BMI 2022-08-31 13:26:00 22.20 kg/m2 Bren ey Seybold - External Systolic blood pressure 2022-08-03 14:18:00 134 mm[Hg] Julissa Seybo ld - External Diastolic blood pressure 2022-08-03 14:18:00 79 mm[Hg] Julissa Seybo ld - External Heart rate 2022-08-03 14:18:00 66 /min Kelse y Seybold - External Body temperature 2022-08-03 14:18:00 36.61 Prudence Julissa Seybold - External Respiratory rate 2022-08-03 14:18:00 14 /min Julissa Seybold - External Body height 2022-08-03 14:18:00 172.7 cm Bren ey Seybold - External Body weight 2022-08-03 14:18:00 64.864 kg Bren ey Seybold - External BMI 2022-08-03 14:18:00 21.74 kg/m2 Bren ey Seybold - External Oxygen saturation in Arterial blood by Pulse oximetry 2022-08-03 14:18:00 100 /min Julissa Kaurybo ld - External Systolic blood pressure 2022-02-28 17:50:00 168 mm[Hg] [facility] Diastolic blood pressure 2022-02-28 17:50:00 92 mm[Hg] [facility] Heart rate 2022-02-28 17:50:00 55 /min [facility] Respiratory rate 2022-02-28 17:50:00 19 /min [facility] Oxygen saturation in Arterial blood by Pulse oximetry 2022-02-28 17:50:00 100 /min [place] o [facility] Body temperature 2022-02-28 15:54:44 36.5 Prudence [facility] Body height 2022-02-28 15:01:00 170.2 cm [facility] Body weight 2022-02-28 15:01:00 70.308 kg [facility] BMI 2022-02-28 15:01:00 24.28 kg/m2 [facility] Procedures Procedure Date / Time Performed Performing Clinicia n Source URINALYSIS 2022-02-28 17:01:00 Chandrakant Kumar [facility] COVID-19 (ID NOW RAPID TESTING) 2022-02-28 17:01:00 Chandrakant Kumar [facility] LIPASE 2022-02-28 15:47:00 Chandrakant Kumar [facility] TROPONIN I 2022-02-28 15:47:00 Chandrakant Kumar [facility] HEPATIC FUNCTION PANEL (76003) (ALB,T.PRO,BILI T,BU/BC,ALT,AST,ALK PHOS) 2022-02-28 15:47:00 Chandrakant Kumar [facility] BASIC METABOLIC PANEL (NA, K, CL, CO2, GLUCOSE, BUN, CREATININE, CA) 2022-02-28 15:47:00 Chandrakant Kumar [facility] CBC WITH DIFF 2022-02-28 15:47:00 Chandrakant Kumar [facility] RAPID INFLUENZA A/B 2022-02-28 15:47:00 Chandrakant Kumar [facility] NOTICE OF PRIVACY PRACTICES 2022-02-28 14:58:50 Doctor Unassigned, Gwynn [facility] CONSENT/REFUSAL FOR DIAGNOSIS AND TREATMENT 2022-02-28 14:57:48 Doctor Unassigned, Gwynn [facility] Encounters Start Date/Time End Date/Time Encounter Type Admission Type Attending Clinicians Care Facility Care Department Encounter ID Source 2024-07-09 09:54:18 2024-07-09 09:54:18 Outpatient SFA SFA [id number] Don Bloom 2024-04-22 15:14:02 2024-04-22 15:14:02 Outpatient SFA SFA [id number] Don Bloom 2023-10-14 00:00:00 2023-10-14 00:00:00 Outpatient PREZAS, SARITA JULISSA ARELLANO [id number] [facility] 2023-04-28 00:00:00 2023-04-28 00:00:00 Outpatient PREZAS, SARITA ARELLANO [id number] [facility] 2023-02-11 00:00:00 2023-02-11 00:00:00 Outpatient PREZAS, SARITA ARELLANO [id number] [facility] 2023-02-09 15:40:00 2023-02-09 15:40:00 Outpatient KRYSTIN, JEF JULISSA ARELLANO [id number] [facility] 2023-01-29 11:30:00 2023-01-29 11:30:00 Outpatient DAAS, LEDY ARELLANO [id number] [facility] 2023-01-17 16:15:00 2023-01-17 16:15:00 Outpatient PREZAS, SARITA ARELLANO [id number] [facility] 2023-01-16 00:00:00 2023-01-16 00:00:00 Outpatient PREZAS, SARITA ARELLANO [id number] [facility] 2022-12-14 09:45:00 2022-12-14 09:45:00 Outpatient JULISSA ARELLANO [id number] [facility] 2022-12-08 11:45:00 2022-12-08 11:45:00 Outpatient PREZAS, SARITA ARELLANO [id number] [facility] 2022-12-08 10:45:00 2022-12-08 10:45:00 Outpatient PREZAS, SAR[facility]ANO [id number] [facility]22-11-28 09:00:00 2022-11-28 09:00:00 Outpatient DAAS, VILLAFANA JULISSA ARELLANO [id number] Julissa Kaurfreddy 2022-11-28 00:00:00 2022-11-28 00:00:00 Outpatient DAAS, LEDY JULISSA ARELLANO [id number] Julissa Kaurfreddy 2022-11-27 00:00:00 2022-11-27 00:00:00 Outpatient PREZAS, SARITA JULISSA ARELLANO [id number] [facility] 2022-11-02 00:00:00 2022-11-02 00:00:00 Outpatient PREZAS, SARITA JULISSA ARELLANO [id number] Julissa Kaurfreddy 2022-10-30 09:20:00 2022-10-30 09:20:00 Outpatient LABKlarissa JULISSA ARELLANO [id number] [facility] 2022-10-30 08:45:00 2022-10-30 08:45:00 Outpatient PREZAS, SARITA ARELLANO [id number] [facility] 2022-10-27 00:00:00 2022-10-27 00:00:00 Outpatient PREZAS, SARITA JULISSA ARELLANO [id number] [facility] 2022-10-13 00:00:00 2022-10-13 00:00:00 Outpatient PREZAS, SARITA ARELLANO [id number] [facility] 2022-10-11 14:30:00 2022-10-11 14:30:00 Outpatient PALUMBOESHA [id number] [facility] 2022-10-11 00:00:00 2022-10-11 00:00:00 Outpatient PREZAS, SARITA ARELLANO [id number] [facility] 2022-09-28 08:30:00 2022-09-28 08:30:00 Outpatient PREZAS, SARITA ARELLANO [id number] [facility] 2022-08-31 08:30:00 2022-08-31 08:30:00 Outpatient PREZAS, SARITA ARELLANO [id number] [facility] 2022-08-04 00:00:00 2022-08-04 00:00:00 Outpatient SARITA RUIZ [id number] Julissa Carrillo 2022-08-03 09:00:00 2022-08-03 09:00:00 Outpatient ARMANDO90 JULISSA ARELALNO [id number] Julissa Carrillo 2022-08-03 08:15:00 2022-08-03 08:15:00 Outpatient SARITA RUIZ [id number] Julissa Carrillo 2022-04-21 14:16:01 2022-04-21 14:16:01 Outpatient SFA SFA [id number] Don Bloom 2022-04-03 15:56:16 2022-04-03 15:56:16 Outpatient SFA SFA [id number] Don Bloom 2022-03-29 09:04:34 2022-03-29 09:04:34 Outpatient SFA SFA [id number] Don Bloom 2022-03-27 14:52:21 2022-03-27 14:52:21 Outpatient SFA SFA [id number] Don Bloom 2022-02-28 10:04:00 2022-02-28 13:08:00 Emergency X CHANDRAKANT KUMAR [facility] ERT [id number] [facility] 2022-02-28 10:04:00 2022-02-28 13:08:00 Emergency Chandrakant Kumar [facility] [id number] [facility] 2019-10-28 13:58:00 2019-10-28 15:33:00 Emergency E RAJNI FLANAGAN BL [id number] [facility] 2018-10-23 07:30:00 2018-10-23 07:30:00 Emergency E MHBL BL [id number] BL Results Test Description Test Time Test Comments Results Result Co mments Source SEDIMENTATION [id number] 09:37:28* Test Item Value Reference Range Interpretation Comme nts SEDIMENTATION RATE (test cod e = 1017) 8 MM/HOUR 0-15 CCP [id number] 06:05:38* Test Item Value Reference Range Interpretation Comme nts CCP IgG (test code = 61996) <0.5 U/ML <3.0 INTERPRETIVE INFORMATION INTERPRETATION RESULT NEGATIVE <3.0 U/ML POSITIVE >=3.0 U/ML UNLESS OTHERWISE INDICATED, ALL TESTING PERFORMED [facility] [employer] [address] [place] [address] BUSINESS OPERATIONS COORDINATOR: LIOR NAZARIO M.D. [place] NUMBER [id number] [facility] [place]. [id number] C-REACTIVE [id number] 04:51:56* Test Item Value Reference Range Interpretation Comme nts C-REACTIVE PROTEIN (test cod e = 3513) <0.3 MG/DL <0.5 RHEUMATOID FACTOR, [id number] 04:51:56* Test Item Value Reference Range Interpretation Comme nts RHEUMATOID FACTOR, QUANT (te st code = 3502) <10 IU/ML <14 LIPID [id number] 08:22:52* Test Item Value Reference Range Interpretation Comme nts CHOLESTEROL (test code = 2210) 164 MG/DL <200 TRIGLYCERIDES (test code = 2232) 103 MG/DL <150 HDL CHOLESTEROL (test code = 2220) 75 MG/DL >39 CALC LDL CHOL (test code = 2237) 70 MG/DL <100 NOTE: CALCULATED LDL IS BASED ON MIKEL-CALIXTO METHOD WHICHINCLUDES ADJUSTABLE TRIGLYCERIDE:VLDL CHOLESTEROL RATIO.THIS FACTOR VARIES BY MEASURED TRIGLYCERIDE AND NON-HDLCHOLESTEROL CONCENTRATIONS WITH INCREASED CALCULATED LDL SEENIN HIGHER TRIGLYCERIDE OR LOWER NON-HDL SPECIMENS. FOR MOREINFORMATION, SEE CLIENT ANNOUNCEMENT AT [email or web address] RISK RATIO LDL/HDL (test code = 2238) 0.93 RATIO <3.55 COMPREHENSIVE METABOLIC [id number] 08:22:52* Test Item Value Reference Range Interpretation Comme nts GLUCOSE (test code = 2217) 88 MG/DL 70-99 BUN (test code = 2208) 16 MG/DL 8-23 CREATININE (test code = 2214) 1.24 MG/DL 0.80-1.40 eGFR (2020 CKD-EPI) (test code = 69743) 66 ML/MIN/1.73 >60 CALC BUN/CREAT (test code = 2235) 13 RATIO 6-28 SODIUM (test code = 223) 144 MEQ/L 133-146 POTASSIUM (test code = 2227) 4.4 MEQ/L 3.5-5.4 CHLORIDE (test code = 2214) 104 MEQ/L 95-107 CARBON DIOXIDE (test code = 2205) 27 MEQ/L 19-31 CALCIUM (test code = 2208) 10.3 MG/DL 8.5-10.5 PROTEIN, TOTAL (test code = 2228) 7.7 G/DL 6.1-8.3 ALBUMIN (test code = 2200) 4.7 G/DL 3.5-5.2 CALC GLOBULIN (test code = 2239) 3.0 G/DL 1.9-3.7 CALC A/G RATIO (test code = 2233) 1.6 RATIO 1.0-2.6 BILIRUBIN, TOTAL (test code = 2206) 0.8 MG/DL See_Comment [Automated me ssage] The system which generated this result transmitted reference range: <=1.2. The reference range was not used to interpret this result as normal/abnormal. ALKALINE PHOSPHATASE (test code = 2203) 81 U/L 40-123 AST (test code = 2217) 29 U/L 9-50 ALT (test code = 2218) 17 U/L 5-50 PSA, [id number] 06:52:55* Test Item Value Reference Range Interpretation Comme nts PSA, TOTAL (test code = 2606) 1.97 NG/ML See_Comment NOTE: Methodolog y is Kendall Alexia Electrochemiluminescence Immunoassay traceable to WHO reference standard 96/760. [Automated message] The system which generated this result transmitted reference range: <=4.00. The reference range was not used to interpret this result as normal/abnormal. TSH, THIRD [id number] 06:52:55* Test Item Value Reference Range Interpretation Comme nts TSH, THIRD GENERATION (test code = 2821) 0.791 UIU/ML 0.400-4.100 HEPATITIS C [id number] 04:01:03* Test Item Value Reference Range Interpretation Comme nts HEPATITIS C ANTIBODY (test c ode = 4675) NON-REACTIVE NON-REACTIVE HIV 1/2 4TH GEN, RFLX [id number] 04:01:03* Test Item Value Reference Range Interpretation Comme nts HIV 1/2 4TH GEN, RFLX CONF ( test code = 3514) NON-REACTIVE NON-REACTIVE HEMOGLOBIN [id number] 02:26:15* Test Item Value Reference Range Interpretation Comme [facility] HEMOGLOBIN A1c (test code = 66334) 5.7 % 4.2-5.6 H UNLESS OTHERWISE INDICATED, ALL TESTING PERFORMED [facility] [address] [place] [address] BUSINESS OPERATIONS COORDINATOR: LIOR NAZARIO M.D. [place] NUMBER [id number] [facility] [place]. [id number] CBC W/AUTO DIFF WITH [id number] 02:02:15* Test Item Value Reference Range Interpretation Comme [facility] WBC (test code = 1001) 6.7 K/UL 3.5-11.0 RBC (test code = 1002) 4.23 M/UL 4.50-6.10 L HEMOGLOBIN (test code = 1003) 12.7 G/DL 13.5-17.0 L HEMATOCRIT (test code = 1004) 38.1 % 40.0-51.0 L MCV (test code = 1005) 90.1 fL 80.0-99.0 MCH (test code = 1006) 30.0 PG 25.0-33.0 MCHC (test code = 1007) 33.3 G/DL 31.0-36.0 RDW (test code = 1038) 13.6 % 11.5-15.0 NEUTROPHILS (test code = 1008) 57.6 % LYMPHOCYTES (test code = 1010) 31.9 % MONOCYTES (test code = 1011) 7.9 % EOSINOPHILS (test code = 1012) 1.9 % BASOPHILS (test code = 1013) 0.4 % IMMATURE GRANULOCYTES (test code = 1036) 0.3 % NUCLEATED RBCS (test code = 1065) 0.0 /100 WBC'S See_Comment [Automated Sync.MEa ge] The system which generated this result transmitted reference range: 0.0. The reference range was not used to interpret this result as normal/abnormal. PLATELET COUNT (test code = 1015) 330 K/UL 130-400 ABSOLUTE NEUTROPHILS (test code = 1066) 3.88 K/UL 1.50-7.50 ABSOLUTE LYMPHOCYTES (test code = 1067) 2.15 K/UL 1.00-4.00 ABSOLUTE MONOCYTES (test code = 1068) 0.53 K/UL 0.20-1.00 ABSOLUTE EOSINOPHILS (test code = 1040) 0.13 K/UL 0.00-0.50 ABSOLUTE BASOPHILS (test code = 1069) 0.03 K/UL 0.00-0.20 ABS IMMATURE GRANULOCYTES (test code = 1020) 0.02 K/UL 0.00-0.10 ABS NUCLEATED RBCS (test code = 65508) 0.00 K/UL 0.00-0.11 TROPONIN [id number] 16:30:32* Test Item Value Reference Range Interpretation Comments TROPONIN I (test code = 1405565844) 0.006 ng/mL See_Comment [Automated message] The system which generated this result transmitted reference range: <=0.034. The reference range was not used to interpret this result as normal/abnormal. GABBY (test code = GABBY) Reference (Normal) Range (defined by the 99th percentile reference [...] to patient's use of biotin. Lab Interpretation (test code = 11703-8) Normal [facility] METABOLIC PANEL (NA, K, CL, CO2, GLUCOSE, BUN, CREATININE, CA)2022-02-28 16:18:50* Test Item Value Reference Range Interpretation Comme nts NA (test code = 4232477570) 135 mmol/L 135-145 K (test code = 9362357009) 4.1 mmol/L 3.5-5 CL (test code = 8472193082) 103 mmol/L 98-108 CO2 TOTAL (test code = 5524685818) 26 mmol/L 23-31 AGAP (test code = 7366481282) 2-16 BUN (test code = 3951951814) 14 mg/dL 7-23 GLUCOSE (test code = 6715246297) 98 mg/dL 70-110 CREATININE (test code = 3148818231) 1.05 mg/dL 0.6-1.25 CALCIUM (test code = 8565781466) 9.6 mg/dL 8.6-10.6 eGFR (test code = 0135434872) mL/min/1.73m2 GABBY (test code = GABBY) Association of [...] or urine or abnormalities in imaging tests). [facility] 16:18:50* Test Item Value Reference Range Interpretation Comme [facility] LIPASE (test code = 8348779413) 62 U/L 0-220 Lab Interpretation (test cod e = 83267-7) Normal [facility] (08169[facility] (ALB,T.PRO,BILI T,BU/BC,ALT,AST,ALK PHOS)2022-02-28 16:18:50* Test Item Value Reference Range Interpretation Comme [facility] TOTAL BILI (test code = 4406145499) 1.1 mg/dL 0.1-1.1 BILI UNCON (test code = 4294046705) 1.0 mg/dL 0.1-1.1 BILI CONJ (test code = 5967247616) 0.0 mg/dL 0-0.3 T PROTEIN (test code = 5981501930) 7.3 g/dL 6.3-8.2 ALBUMIN (test code = 5575064452) 4.5 g/dL 3.5-5 ALK PHOS (test code = 0283374029) 68 U/L 34-122 ALTv (test code = 1742-6) 18 U/L 5-50 AST(SGOT) (test code = 7734479394) 27 U/L 13-40 Lab Interpretation (test cod e = 97140-5) Normal [facility] WITH [id number] 15:57:46* Test Item Value Reference Range Interpretation Comme nts WBC (test code = 6690-2) See_Comment [Automated messa ge] The system which generated this result transmitted reference range: 4.20 - 10.70 10*3/?L. The reference range was not used to interpret this result as normal/abnormal. RBC (test code = 789-8) See_Comment L [Automated messa ge] The system which generated this result transmitted reference range: 4.26 - 5.52 10*6/?L. The reference range was not used to interpret this result as normal/abnormal. HGB (test code = 718-7) 12.5 g/dL 12.2-16.4 HCT (test code = 4544-3) 36.9 % 38.4-49.3 L MCV (test code = 787-2) 89.3 fL 81.7-95.6 MCH (test code = 785-6) 30.3 pg 26.1-32.7 MCHC (test code = 786-4) 33.9 g/dL 31.2-35 RDW-SD (test code = 99764-5) 45.5 fL 38.5-51.6 RDW-CV (test code = 788-0) 13.9 % 12.1-15.4 PLT (test code = 777-3) See_Comment [Automated messa ge] The system which generated this result transmitted reference range: 150 - 328 10*3/?L. The reference range was not used to interpret this result as normal/abnormal. MPV (test code = 34848-4) 9.2 fL 9.8-13 L NRBC/100 WBC (test code = 3891556770) See_Comment [Automated Veracode ssage] The system which generated this result transmitted reference range: 0.0 - 10.0 /100 WBCs. The reference range was not used to interpret this result as normal/abnormal. NRBC x10^3 (test code = 7604036075) See_Comment [Automated messa ge] The system which generated this result transmitted reference range: 10*3/?L. The reference range was not used to interpret this result as normal/abnormal. GRAN MAT (NEUT) % (test code = 770-8) 71.4 % IMM GRAN % (test code = 5136791287) 0.20 % LYMPH % (test code = 736-9) 22.2 % MONO % (test code = 5905-5) 5.6 % EOS % (test code = 713-8) 0.3 % BASO % (test code = 706-2) 0.3 % GRAN MAT x10^3(ANC) (test code = 0072631737) 4.61 10*3/uL 1.99-6.95 IMM GRAN x10^3 (test code = 9193671075) 0-0.06 LYMPH x10^3 (test code = 731-0) 1.43 10*3/uL 1.09-3.23 MONO x10^3 (test code = 742-7) 0.36 10*3/uL 0.36-1.02 EOS x10^3 (test code = 711-2) 0.06-0.53 L BASO x10^3 (test code = 704-7) 0.01-0.09 Lab Interpretation (test code = 43354-5) Abnormal [facility]"
[2024-08-04] MEDS ORDERED: KETOROLAC 30 MG/ML INJ ONE (06:50)
[2024-08-04] MEDS ORDERED: ONDANSETRON 4 MG/2 ML VIAL ONE (06:50)
[2024-08-04] MEDS ORDERED: dexAMETHasone 10 MG/ML VIAL ONE (06:50)
[2024-08-04] MEDS ORDERED: NA CHLORIDE 0.9% 500 ML ONE (06:51)
[2024-08-04] MEDS ORDERED: DIAZEPAM 5 MG TABLET ONE (06:51)
[2024-08-04] MEDS ORDERED: MORPHINE 4 MG/ML SYR ONE (06:51)
[2024-08-04 07:00] LABS: Absolute Basophils 0.1 K/uL (0-0.5); Absolute Eosinophils 0.1 K/uL (0-0.5); Absolute Lymphocytes (CBC) 1.4 K/uL (0.7-4.9); Absolute Monocytes 0.9 K/uL (0.1-1.3); Absolute Neutrophil 6.5 K/uL (1.8-8.0); Basophils % 0.6 % (0-1.3); Eosinophils % 1.6 % (0-4.4); Hematocrit 38.5 % (39.6-49.0); Lymphocytes % 15.9 % (15.3-44.8); MCH 30.4 pg (27.0-35.0); MCHC 33.8 g/dL (32.0-36.0); MCV 89.7 fL (80-100); MPV 7.4 fL (7.6-11.3); Monocytes % 9.8 % (3.3-12.3); Neutrophils % 72.1 % (41.7-73.7); Nucleated Red Blood Cells % 0.1 % (0-0); Platelets 350 thou/uL (152-406); RBC Red Blood Cell Count 4.29 M/uL (4.33-5.43); Red Cell Distribution Width 14.7 % (12.1-15.2)
[2024-08-04 07:15] LABS: Albumin 3.7 g/dL (3.4-5.0); Albumin/Globulin Ratio 0.9 (1.1-1.8); Anion Gap 8.8 mEq/L (5.0-15.0); Globulin 4.3 g/dL (2.3-3.5); Potassium 3.8 mEq/L (3.5-5.1)
--- NOTE | 2024-08-04 08:16 | RAD REPORT ---
EXAM: CT C Spine Wo Con HISTORY: PAIN COMPARISON: 12/30/2020 TECHNIQUE: Multiple contiguous axial images were obtained in a CT of the cervical spine without IV co ntrast. Sagittal and coronal reformats were performed. One or more of the following dose reduction techniques were used: Automated exposure control, adjustment of the mA and kV according to patient si ze, and iterative reconstruction. Unless otherwise specified, incidental findings do not require dedicated imaging follow-up. FINDINGS: The vertebral bodies and intervertebral discs demonstrate normal height and alignment without fractur e or subluxation. No prevertebral soft tissue swelling is seen. The posterior facets are well aligned. Progressive degenerative changes along the facet articulations , particularly at C3-4 on the left and C6-7 on the right, with subchondral irregularity and cystic changes. Mild to moderate degrees of neural foraminal narrowing at both levels, and at C4-5 on the le ft due to uncovertebral joint and facet arthropathy. Normal alignment of the skull base with the cervical spine is seen. The lung apices are unremarkable. The cervical soft tissues are unremarkable. IMPRESSION: No evidence of acute osseous abnormality of the cervical spine. Progressive cervical spine spondylotic changes as above.
--- NOTE | 2024-08-04 08:37 | EDPHYS ---
Physician Documentation [facility] Name: Kenji Ahn Jr Age: 64 yrs Sex: Male : 1960 Arrival Date: 08/04/2024 Time: 06:26 Bed 6 Private MD: ED Physician Ricardo Randall HPI: 08/04 06:43 This 64 yrs old Black Male presents to ER via Ambulatory with complaints of Neck Pain. oleg 06:43 The patient or guardian complains of decreased range of motion, pain, that is acute. oleg The symptoms are located on the base of the skull and right trapezius and left trapezius. Onset: The symptoms/episode began/occurred 2 day(s) ago. Context: The problem was sustained at an unknown location, The neck injury/problem resulted from from unknown cause. Associated signs and symptoms: The patient has no apparent associated signs or symptoms. The pain does not radiate. Modifying factors: The symptoms are alleviated by remaining still, the symptoms are aggravated by movement. Severity of symptoms: At their worst the symptoms were moderate, in the emergency department the symptoms are unchanged. The patient has not experienced similar symptoms in the past. Historical: - Allergies: 06:39 No Known Allergies; bm8 - Home Meds: 06:39 None [Active]; bm8 - PMHx: 06:39 Asthma; diabetes mellitus; Hypertensive disorder; bm8 - PSHx: 06:39 hand; knee; hernia; Tonsillectomy; bm8 - Immunization history:: Adult Immunizations up to date. - Infectious Disease History:: Denies. - Social history:: Smoking status: Patient reports the use of cigarette tobacco products, smokes one-half pack cigarettes per day. ROS: 06:49 Constitutional: Negative for fever, chills, and weight loss, Eyes: Negative for injury, oleg pain, redness, and discharge, ENT: Negative for injury, pain, and discharge, Cardiovascular: Negative for chest pain, palpitations, and edema, Respiratory: Negative for shortness of breath, cough, wheezing, and pleuritic chest pain, Abdomen/GI: Negative for abdominal pain, nausea, vomiting, diarrhea, and constipation, Back: Negative for injury and pain, : Negative for injury, bleeding, discharge, and swelling, MS/Extremity: Negative for injury and deformity, Skin: Negative for injury, rash, and discoloration, Neuro: Negative for headache, weakness, numbness, tingling, and seizure, Psych: Negative for depression, anxiety, suicide ideation, homicidal ideation, and hallucinations, Allergy/Immunology: Negative for hives, rash, and allergies, Endocrine: Negative for neck swelling, polydipsia, polyuria, polyphagia, and marked weight changes, Hematologic/Lymphatic: Negative for swollen nodes, abnormal bleeding, and unusual bruising, 06:49 Neck: Positive for pain with movement, pain at rest, Exam: 06:49 Constitutional: This is a well developed, well nourished patient who is awake, alert, oleg and in no acute distress. Head/Face: Normocephalic, atraumatic. Eyes: Pupils equal round and reactive to light, extra-ocular motions intact. Lids and lashes normal. Conjunctiva and sclera are non-icteric and not injected. Cornea within normal limits. Periorbital areas with no swelling, redness, or edema. ENT: Nares patent. No nasal discharge, no septal abnormalities noted. Tympanic membranes are normal and external auditory canals are clear. Oropharynx with no redness, swelling, or masses, exudates, or evidence of obstruction, uvula midline. Mucous membranes moist. Chest/axilla: Normal chest wall appearance and motion. Nontender with no deformity. No lesions are appreciated. Cardiovascular: Regular rate and rhythm with a normal S1 and S2. No gallops, murmurs, or rubs. Normal PMI, no JVD. No pulse deficits. Respiratory: Lungs have equal breath sounds bilaterally, clear to auscultation and percussion. No rales, rhonchi or wheezes noted. No increased work of breathing, no retractions or nasal flaring. Abdomen/GI: Soft, non-tender, with normal bowel sounds. No distension or tympany. No guarding or rebound. No evidence of tenderness throughout. Back: No spinal tenderness. No costovertebral tenderness. Full range of motion. Male : Normal genitalia with no discharge or lesions. Skin: Warm, dry with normal turgor. Normal color with no rashes, no lesions, and no evidence of cellulitis. MS/ Extremity: Pulses equal, no cyanosis. Neurovascular intact. Full, normal range of motion., bilateral aka Neuro: Awake and alert, GCS 15, oriented to person, place, time, and situation. Cranial nerves II-XII grossly intact. Motor strength 5/5 in all extremities. Sensory grossly intact. Cerebellar exam normal. Normal gait. Psych: Awake, alert, with orientation to person, place and time. Behavior, mood, and affect are within normal limits. 06:49 Neck: C-spine: no acute changes, Thyroid: appears normal, no enlargement, no nodules, no tenderness, Trachea: is midline with no obvious abnormalities, no acute changes, ROM/movement: pain, that is moderate, limited range of motion, that is moderate, in any direction, Meningeal signs: are not present, Kernig's sign is negative, Brudzinski's sign is negative, nuchal rigidity, is not appreciated, Vital Signs: 06:38 BP 157 / 102; Pulse 62; Resp 18; Temp 97.8; Pulse Ox 100% ; Weight 63.5 kg; Height 5 bm8 ft. 9 in. ; Pain 9/10; 06:58 BP 147 / 93; Pulse 66; Resp 18; Temp 97.8; Pulse Ox 100% ; Pain 9/10; bm8 08:50 BP 138 / 87; Pulse 65; Resp 17; Pulse Ox 100% ; ko1 06:38 Body Mass Index 20.67 (63.50 kg, 175.26 cm) bm8 06:38 Pain Scale: Adult bm8 06:58 Pain Scale: Adult bm8 [place] Coma Score: 06:58 Eye Response: spontaneous(4). Motor Response: obeys commands(6). Verbal Response: bm8 oriented(5). Total: 15. 06:58 Eye Response: spontaneous(4). Motor Response: obeys commands(6). Verbal Response: bm8 oriented(5). Total: 15. MDM: 06:35 Medical Screening Exam initiated oleg 06:51 Differential diagnosis: Cervical Disc Herniation cervical strain, Degenerative Disc oleg Disease fracture, Neck Contusion Spondylosis torticollis, Whiplash Injury. Data reviewed: vital signs, nurses notes, lab test result(s), radiologic studies, CT scan. Consideration of Admission/Observation Escalation of care including admission/observation considered. I considered the following discharge prescriptions or medication management in the emergency department Medications were administered in the Emergency Department. See MAR. Independent interpretation of the following test(s) in the Emergency Department CT Scan: My interpretation is ct c spine. Test considered but Not performed: EKG: no ekg. Care significantly affected by the following chronic conditions: Diabetes, Hypertension, asthma, no hx of neck trauma. Counseling: I had a detailed discussion with the patient and/or guardian regarding the historical points, exam findings, and any diagnostic results supporting the discharge/admit diagnosis, lab results, radiology results, the need for outpatient follow up, for definitive care, a family practitioner. 08:54 Response to treatment: the patient's symptoms have markedly improved after treatment. rt 08/04 06:42 Order name: CBC with Diff; Complete Time: 07:25 oleg 08/04 06:42 Order name: Comprehensive Metabolic Panel; Complete Time: 07:25 oleg 08/04 06:42 Order name: CT C Spine; Complete Time: 08:19 [facility] Administered Medications: 06:57 Drug: Ketorolac IVP 30 mg IVP once Route: IVP; Site: right forearm; bm8 07:15 Follow up: Response: No adverse reaction ko1 06:57 Drug: morphine IVP or IV 4 mg IVP once over 4 mins Route: IVP; Infused Over: 4 mins; bm8 Site: right forearm; 07:15 Follow up: Response: No adverse reaction ko1 06:57 Drug: Ondansetron IVP 4 mg IVP once; over 2 minutes Route: IVP; Site: right forearm; bm8 07:15 Follow up: Response: No adverse reaction ko1 06:57 Drug: Decadron - Dexamethasone IVP 10 mg IVP once Route: IVP; Site: right forearm; bm8 07:15 Follow up: Response: No adverse reaction ko1 06:57 Drug: Diazepam PO 10 mg PO once Route: PO; bm8 07:30 Follow up: Response: No adverse reaction ko1 06:58 Drug: NS 0.9% IV 500 ml 500 ml IV at 1 bolus once; to be given as a bolus over 30 bm8 minutes Volume: 500 ml; Route: IV; Rate: 1 bolus; Site: right forearm; 08:30 Follow up: Response: No adverse reaction; IV Status: Completed infusion; IV Intake: ko1 500ml Disposition Summary: 08/04/24 08:37 Discharge Ordered Notes: Location: Home rt Problem: new rt Symptoms: have improved rt Condition: Stable rt Diagnosis - Strain of muscle, fascia and tendon at neck level, initial encounter rt - Torticollis rt Followup: oleg - With: Private Physician - When: 2 - 3 days - Reason: Recheck today's complaints, Continuance of care, Re-evaluation by your physician Discharge Instructions: - Discharge Summary Sheet oleg - Musculoskeletal Pain oleg - Acute Torticollis, Adult oleg Forms: - Medication Reconciliation Form rt - Antibiotic Education rt - Prescription Opioid Use rt - Patient Portal Instructions rt - Leadership Thank You Letter rt Prescriptions: - dexamethasone 4 mg Oral tablet - take 1 tablet ORAL route once daily begin 08/05/24; 4 tablet; Refills: 0, [facility] Product Selection Permitted - Diclofenac Sodium 75 mg Oral tablet, delayed release (enteric coated) - take 1 tablet ORAL route 2 times per day; 20 tablet; Refills: 0, Product [facility] Selection Permitted - Cyclobenzaprine 10 mg Oral tablet - take 1 tablet ORAL route every 8 hours As needed; 15 tablet; Refills: 0, rt Product Selection Permitted Signatures: Dispatcher [employer] EDKm Freeman MD MD cha [place], Ryan, MD MD rt Rj Desai RN RN bm8 Natividad Norwood RN ko1 Corrections: (The following items were deleted from the chart) 06:42 06:42 CBC+H.LAB.BRZ ordered. EDMS EDMS 06:42 06:42 COMPREHENSIVE METABOLIC PANEL+C.LAB.BRZ ordered. EDMS EDMS 06:42 06:42 C Spine Wo Con+CT.RAD.BRZ ordered. EDMS EDMS
--- NOTE | 2024-08-04 08:37 | ER ---
Nurse's Notes [facility] Name: Kenji Ahn Jr Age: 64 yrs Sex: Male : 1960 Arrival Date: 08/04/2024 Time: 06:26 Bed 6 Private MD: Diagnosis: Strain of muscle, fascia and tendon at neck level, initial encounter;Torticollis Presentation: 08/04 06:38 Chief complaint: Patient states: i THINK I SLEPT WRONG AND i HAVE TERRIBLE PAIN IN MY bm8 NECK. Coronavirus screen: At this time, the client does not indicate any symptoms associated with coronavirus-19. Ebola Screen: Patient negative for fever greater than or equal to 101.5 degrees Fahrenheit, and additional compatible Ebola Virus Disease symptoms Patient denies exposure to infectious person. Patient denies travel to an Ebola-affected area in the 21 days before illness onset. No symptoms or risks identified at this time. Initial Sepsis Screen: Does the patient meet any 2 criteria? No. Patient's initial sepsis screen is negative. Does the patient have a suspected source of infection? No. Patient's initial sepsis screen is negative. Risk Assessment: Do you want to hurt yourself or someone else? Patient reports no desire to harm self or others. Onset of symptoms was August 03, 2024 at 17:00. 06:38 Method Of Arrival: Ambulatory bm8 06:38 Acuity: BELEN 3 bm8 Triage Assessment: 06:39 General: Appears in no apparent distress. uncomfortable, Behavior is calm, cooperative, bm8 appropriate for age. Pain: Complains of pain in posterior cervical area, left trapezius and right trapezius Pain currently is 9 out of 10 on a pain scale. Quality of pain is described as crampy, sharp. EENT: No deficits noted. No signs and/or symptoms were reported regarding the EENT system. Neuro: No deficits noted. Level of Consciousness is awake, alert, obeys commands, Oriented to person, place, time, situation, Appropriate for age. Cardiovascular: No deficits noted. Capillary refill < 3 seconds in bilateral fingers Patient's skin is warm and dry. Respiratory: Airway is patent Trachea midline Respiratory effort is even, unlabored, Respiratory pattern is regular, symmetrical. Musculoskeletal: Capillary refill < 3 seconds, in bilateral fingers. Range of motion: LIMITED IN NECK Reports pain in posterior cervical area, left trapezius and right trapezius. Historical: - Allergies: 06:39 No Known Allergies; bm8 - Home Meds: 06:39 None [Active]; bm8 - PMHx: 06:39 Asthma; diabetes mellitus; Hypertensive disorder; bm8 - PSHx: 06:39 hand; knee; hernia; Tonsillectomy; bm8 - Immunization history:: Adult Immunizations up to date. - Infectious Disease History:: Denies. - Social history:: Smoking status: Patient reports the use of cigarette tobacco products, smokes one-half pack cigarettes per day. Screenin:58 [facility] ED Fall Risk Assessment (Adult) History of falling in the last 3 months, bm8 including since admission No falls in past 3 months (0 pts) Confusion or Disorientation No (0 pts) Intoxicated or Sedated No (0 pts) Impaired Gait No (0 pts) Mobility Assist Device Used No (0 pt) Altered Elimination No (0 pt) Score/Fall Risk Level 0 - 2 = Low Risk Oriented to surroundings, Maintained a safe environment, Educated pt \T\ family on fall prevention, incl call for assistance when getting out of bed, Assessed \T\ reinforced patient's understanding of fall precautions, Hourly rounding (assess needs \T\ fall precautionary measures) done, Used ambulatory aids as needed (educated on \T\ assisted with), Used gait belt as appropriate. Abuse screen: Denies threats or abuse. Nutritional screening: No deficits noted. Tuberculosis screening: No symptoms or risk factors identified. Assessment: 08:15 General: Appears in no apparent distress. Behavior is calm, cooperative, appropriate ko1 for age. Pain: Complains of pain in right trapezius and left trapezius and posterior cervical area. Neuro: No deficits noted. Cardiovascular: No deficits noted. Respiratory: No deficits noted. GI: No deficits noted. No signs and/or symptoms were reported involving the gastrointestinal system. : No deficits noted. No signs and/or symptoms were reported regarding the genitourinary system. EENT: No deficits noted. No signs and/or symptoms were reported regarding the EENT system. Derm: No deficits noted. No signs and/or symptoms reported regarding the dermatologic system. Musculoskeletal: Reports pain in right trapezius and left trapezius and posterior cervical area. Vital Signs: 06:38 BP 157 / 102; Pulse 62; Resp 18; Temp 97.8; Pulse Ox 100% ; Weight 63.5 kg; Height 5 bm8 ft. 9 in. ; Pain 9/10; 06:58 BP 147 / 93; Pulse 66; Resp 18; Temp 97.8; Pulse Ox 100% ; Pain 9/10; bm8 08:50 BP 138 / 87; Pulse 65; Resp 17; Pulse Ox 100% ; ko1 06:38 Body Mass Index 20.67 (63.50 kg, 175.26 cm) bm8 06:38 Pain Scale: Adult bm8 06:58 Pain Scale: Adult bm8 [place] Coma Score: 06:58 Eye Response: spontaneous(4). Motor Response: obeys commands(6). Verbal Response: bm8 oriented(5). Total: 15. 06:58 Eye Response: spontaneous(4). Motor Response: obeys commands(6). Verbal Response: bm8 oriented(5). Total: 15. ED Course: 06:31 Patient arrived in ED. gm2 06:35 Km Gonzalez MD is Attending Physician. oleg 06:38 Rj Desai, RN is Primary Nurse. bm8 06:39 Triage completed. bm8 06:39 Arm band placed on right wrist. bm8 06:58 Patient has correct armband on for positive identification. Bed in low position. Call bm8 light in reach. Side rails up X 1. Client placed on continuous cardiac and pulse oximetry monitoring. NIBP monitoring applied. Pulse ox on. NIBP on. Door closed. Noise minimized. Warm blanket given. Pillow given. Verbal reassurance given. Head of bed elevated. 06:58 No provider procedures requiring assistance completed. Initial lab(s) drawn, by renee abdalla sent to lab. Inserted saline lock: 20 gauge in right forearm, using aseptic technique. Blood collected. Flushed with 10 mL NS. Patient maintains SpO2 saturation greater than 95% on room air. 07:25 Attending Physician role handed off by Km Gonzalez MD rt 07:25 Ricardo Randall MD is Attending Physician. rt 07:47 CT C Spine In Process Unspecified. EDMS 08:15 Provided Education on: tests, labs. ko1 08:50 IV discontinued, intact, bleeding controlled, No redness/swelling at site. Pressure ko1 dressing applied. Administered Medications: 06:57 Drug: Ketorolac IVP 30 mg IVP once Route: IVP; Site: right forearm; bm8 07:15 Follow up: Response: No adverse reaction ko1 06:57 Drug: morphine IVP or IV 4 mg IVP once over 4 mins Route: IVP; Infused Over: 4 mins; bm8 Site: right forearm; 07:15 Follow up: Response: No adverse reaction ko1 06:57 Drug: Ondansetron IVP 4 mg IVP once; over 2 minutes Route: IVP; Site: right forearm; bm8 07:15 Follow up: Response: No adverse reaction ko1 06:57 Drug: Decadron - Dexamethasone IVP 10 mg IVP once Route: IVP; Site: right forearm; bm8 07:15 Follow up: Response: No adverse reaction ko1 06:57 Drug: Diazepam PO 10 mg PO once Route: PO; bm8 07:30 Follow up: Response: No adverse reaction ko1 06:58 Drug: NS 0.9% IV 500 ml 500 ml IV at 1 bolus once; to be given as a bolus over 30 bm8 minutes Volume: 500 ml; Route: IV; Rate: 1 bolus; Site: right forearm; 08:30 Follow up: Response: No adverse reaction; IV Status: Completed infusion; IV Intake: ko1 500ml Medication: 06:58 VIS not applicable for this client. bm8 Intake: 08:30 IV: 500ml; Total: 500ml. ko1 Outcome: 08:37 Discharge ordered by MD. rt 08:50 Discharged to home ambulatory, ko1 08:50 Condition: stable 08:50 Discharge instructions given to patient, Instructed on discharge instructions, follow up and referral plans. medication usage, Demonstrated understanding of instructions, follow-up care, medications, Prescriptions given X 3, 08:55 Patient left the ED. ko1 Signatures: Dispatcher [employer] EDKm Freeman MD MD cha Oliver, Kathy, RN RN ko1 Ricardo Randall MD MD rt Alla Meier gm2 Rj Desai, PRISCILLA RN bm8 Corrections: (The following items were deleted from the chart) 07:00 06:58 Door closed. Noise minimized. Warm blanket given. Pillow given. Verbal bm8 reassurance given. Head of bed bm8
[2024-08-04 09:03] VITALS: TEMP 97.8; O2SAT 100
[2024-08-04 09:06] VITALS: BP 138/87
== END 2024-08-04 08:55 | disposition home or self-care (01) ==
LOC: ER 06:26
DX: S16.1XXA Strain of muscle, fascia and tendon at neck level, initial encounter (principal); M43.6 Torticollis
CPT/HCPCS: 96361; 85025; 36415; 80053; 72125; 96375; 96374; 99284; J1100; J2405; J7040